=== PATIENT | male | born 1955 | race Caucasian/White ===

== ENCOUNTER 2019-01-05 11:14 | Emergency (ER) | payer OTHER ==
[~2019-01-05] VITALS: Ht 190.5 cm; Wt 81.3 kg
[~2019-01-05 11:14] MED LIST: ALBU8.5H5 PO; AMLO-150 PO; ASPI-496 PO; AUGMENTIN; CIPR500T87 PO; LISINOPRIL; LORA1TAB46; METO10TA82 PO; ONDA4TAB10 PO; OXYC-302 PO; TAMS0.4C2 PO; ZOLP10TA
--- NOTE | 2019-01-05 11:30 | NUR ---
PT STATES HE TOOK EXTRA OF HIS POTASSIUM ON ACCIDENT. PT STATES HE IS NAUSEUS, VOMITED, DISORIENTED,. MD AT BEDSIDE.
[2019-01-05] MEDS ORDERED: HYDR12.575 PO (11:35)
[2019-01-05] MEDS ORDERED: POTA15TA9 PO (11:35)
[2019-01-05] MEDS ORDERED: AMLO10TA8 PO (11:35)
[2019-01-05 11:53] LABS: BASOPHILS # (AUTO) 0.03 x10^3/uL (0-0.1); BASOPHILS % (AUTO) 1 % (0-1); EOSINOPHILS # (AUTO) 0.06 x10^3/uL (0-0.4); EOSINOPHILS % (AUTO) 1 % (1-7); LYMPHOCYTES # (AUTO) 1.24 x10^3/uL (1-3.4); LYMPHOCYTES % (AUTO) 23 % (22-44); MD NO; MEAN CORPUSCULAR HEMOGLOBIN 31.4 pg (27.5-34.5); MEAN CORPUSCULAR HGB CONC 33.5 g/dL (33.2-36.2); MEAN CORPUSCULAR VOLUME 93.9 fL (81-97); MEAN PLATELET VOLUME 8.1 fL (7.4-10.4); MONOCYTES % (AUTO) 6 % (2-9); NEUTROPHILS # (AUTO) 3.85 x10^3/uL (1.8-6.8); NEUTROPHILS % (AUTO) 70 % (42-75); PLATELET COUNT 220 x10^3/uL (130-400); RED BLOOD COUNT 4.76 x10^6/uL (4.38-5.82); RED CELL DISTRIBUTION WIDTH 12.7 % (9.4-14.8)
[2019-01-05 12:02] LABS: ALBUMIN 3.9 g/dL (3.4-5.0); ANION GAP 5 mmol/L (5-15); CALCIUM 8.3 mg/dL (8.5-10.1); CHLORIDE 108 mmol/L (98-107); CREATININE 1.18 mg/dL (0.7-1.3)
[2019-01-05 12:43] VITALS: BP 132/73
--- NOTE | 2019-01-05 12:43 | NUR ---
Lunch RN: Pt resting in room with family at bs. VSS. No needs expressed. Lab results back at this time. Chart up for recheck.
--- NOTE | 2019-01-05 13:24 | NUR ---
Patient/Caregiver given discharge instructions and they have confirmed that they understand the instructions. Patient ambulatory with steady gait.
== END 2019-01-05 13:26 | disposition home or self-care (01) ==
LOC: ED 11:46
DX: T50.3X1A Poisoning by electrolytic, caloric and water-balance agents, accidental (unintentional), initial encounter (principal); R11.2 Nausea with vomiting, unspecified; Y92.89 Other specified places as the place of occurrence of the external cause; I48.91 Unspecified atrial fibrillation; I10 Essential (primary) hypertension
CPT/HCPCS: 36415; 80048; 82040; 85025; 99283

== ENCOUNTER 2019-02-11 22:18 | Emergency (ER) | payer OTHER ==
[~2019-02-11] VITALS: Ht 190.5 cm; Wt 81.7 kg
[~2019-02-11 22:18] MED LIST changes: +AMLO10TA8 PO; +HYDR12.575 PO; +POTA15TA9 PO
[2019-02-11 22:31] VITALS: BP 109/67
[2019-02-11 23:03] LABS: MICROSCOPIC AUTO
[2019-02-11 23:09] LABS: CULTURE INDICATED? YES
[2019-02-11 23:15] LABS: ANION GAP 5 mmol/L (5-15); CALCIUM 8.2 mg/dL (8.5-10.1); CHLORIDE 105 mmol/L (98-107)
[2019-02-11 23:16] LABS: CREATININE 1.13 mg/dL (0.7-1.3)
[2019-02-11 23:17] LABS: BASOPHILS # (AUTO) 0.04 x10^3/uL (0-0.1); BASOPHILS % (AUTO) 1 % (0-1); EOSINOPHILS % (AUTO) 3 % (1-7); LYMPHOCYTES # (AUTO) 2.67 x10^3/uL (1-3.4); LYMPHOCYTES % (AUTO) 44 % (22-44); MD NO; MEAN CORPUSCULAR HEMOGLOBIN 31.5 pg (27.5-34.5); MEAN CORPUSCULAR HGB CONC 33.5 g/dL (33.2-36.2); MEAN CORPUSCULAR VOLUME 94.1 fL (81-97); MEAN PLATELET VOLUME 8.4 fL (7.4-10.4); MONOCYTES # (AUTO) 0.46 x10^3/uL (0.2-0.8); MONOCYTES % (AUTO) 8 % (2-9); NEUTROPHILS # (AUTO) 2.74 x10^3/uL (1.8-6.8); NEUTROPHILS % (AUTO) 45 % (42-75); PLATELET COUNT 233 x10^3/uL (130-400); RED BLOOD COUNT 4.39 x10^6/uL (4.38-5.82)
--- NOTE | 2019-02-11 23:30 | NUR ---
AT TIME OF D/C PT REQ PA TO LOOK AT "RASH" ON HIS BACK. PT HAS TWO SMALL WELTS TO BACK MILD ERYTHMA. PT REPORTS PAINFUL AND ITCHY.
== END 2019-02-11 23:39 | disposition home or self-care (01) ==
LOC: ED 22:58
DX: N39.0 Urinary tract infection, site not specified (principal); I48.91 Unspecified atrial fibrillation; I10 Essential (primary) hypertension
CPT/HCPCS: 36415; 80048; 81001; 85025; 87086; 99283